=== PATIENT | female | born 1960 | race Caucasian/White ===

== ENCOUNTER 2018-06-30 08:25 | Day surgery (SDC) | payer OTHER ==
[2018-06-30] MEDS ORDERED: LIDOCAINE 2% MDV (20MG/ML) 20ML VIAL IV ONE (08:26)
[2018-06-30] MEDS ORDERED: PROPOFOL 10 MG/ML VIAL IV ONE (08:26)
--- NOTE | 2018-07-03 08:40 | Operative Note ---
DATE OF SURGERY: 06/30/2018 OPERATION: COLONOSCOPY to the cecum with cold biopsy forceps polypectomy x3 and cold snare polypectomy x3. INDICATION: History of adenomatous polyps. The patient's last examination was 5 years ago. She denies current GI complaints. ANESTHESIA: Intravenous sedation was administered by the department of anesthesiology and included Diprivan titrated to effect. PROCEDURE: Following informed consent from this alert individual including a discussion of the risks and benefits of the procedure and an opportunity for the patient to ask questions, the patient was in the left lateral decubitus position. A digital rectal examination was performed. No abnormalities were noted. Following this, the Olympus [id number] video colonoscope was inserted into the rectum without resistance. The rectal mucosa had a normal appearance with normal folds and distensibility. The colonoscope was advanced up through the bowel to the level of the cecum without much difficulty. Throughout the bowel the mucosa appeared normal, the folds were normal, and the bowel was fairly well distensible. Multiple polyps were noted throughout the examination. At the base of the cecum, there was a 4 mm polyp noted which was removed with cold snare polypectomy and suctioned through the colonoscope into a collection trap. There were 3 rectosigmoid polyps noted measuring 3-4 mm in size. Two were removed with cold snare and one with biopsy forceps. There were 2 diminutive rectal polyps removed with biopsy forceps. No other changes were appreciated. Retroflexion was endoscopically unremarkable in the rectum. The instrument was removed. The patient tolerated the procedure well. The colon preparation was good. She was returned to the recovery area in stable condition. IMPRESSION: 1. A total of 6 polyps removed, all rather small in size with a 4 mm polyp at the cecal base removed with cold snare. 2. Three rectosigmoid polyps measuring 3-4 mm in size noted, one with biopsy forceps and two with cold snare. 3. Two rectal polyps which were diminutive in size removed with biopsy forceps. RECOMMENDATIONS: Further recommendations will be forthcoming pending results of pathology obtained today. As always, thank you for allowing me to participate in the care of your patient. CC: DO GAETANO Holder
== END 2018-06-30 10:37 | disposition home or self-care (01) ==
LOC: HOP 08:25
PROVIDERS: ATTEND Internal Medicine Gastroenterology
DX: Z12.11 Encounter for screening for malignant neoplasm of colon (principal); Z86.010 Personal history of colon polyps; D12.0 Benign neoplasm of cecum; D12.7 Benign neoplasm of rectosigmoid junction; K62.1 Rectal polyp; E78.00 Pure hypercholesterolemia, unspecified